=== PATIENT | female | born 1965 | race Two or more races ===

== ENCOUNTER 2017-04-25 05:28 | Day surgery (SDC) | payer BC ==
[~2017-04-25] VITALS: Ht 154.9 cm; Wt 59.9 kg
[~2017-04-25 05:28] MED LIST: Aspirin E.C. PO; BACTRIM,SEPT1 TABLET PO; BENADRYL50 MG PO; IRON325 M1 PO; LISINOPRIL-HCT1 EACH PO; MIDOL COMPLETE1 EACH PO; NAPROXEN500 MG PO; NOHOMEMEDS; NORVASC10 MG PO; PERCOCET 5/31 TABLET PO; PHARMACIST FAV1 EACH PO; THERAGRAN1 TABLET PO; TORADOL10 MG PO; TYLENOL EXTRA500 MG PO; VITAMIN B-12250 MCG PO; VITAMIN B-650 MG PO; VITAMIN B12 100MCG PO; VITAMIN B12-FO1 EACH PO
[2017-04-25 06:07] VITALS: BP 126/76
[2017-04-25 09:10] VITALS: BP 135/65
[2017-04-25 10:10] VITALS: BP 140/65
[2017-04-27 12:28] LABS: INTERNAL CONTROL VALID? YES
== END 2017-04-25 10:10 | disposition home or self-care (01) ==
LOC: SDC 05:28
PROVIDERS: Obstetrics & Gynecology
DX: N84.0 Polyp of corpus uteri (principal); N95.0 Postmenopausal bleeding; I10 Essential (primary) hypertension
CPT/HCPCS: 84703; 88305; 93005; J1100; J1885; J2250; J2405; J3010